=== PATIENT | male | born 1990 | race Hispanic/Latino ===

== ENCOUNTER 2017-03-05 18:50 | Emergency (ER) | payer SELFPAY ==
[2017-03-05] MEDS ORDERED: Dexamethasone 10 MG/ML VIAL ONE (20:22)
[2017-03-05] MEDS ORDERED: Ibuprofen 800 MG TAB ONE (20:22)
== END 2017-03-05 20:45 | disposition home or self-care (01) ==
LOC: ERS 18:50
DX: J40 Bronchitis, not specified as acute or chronic (principal); Z79.899 Other long term (current) drug therapy
CPT/HCPCS: 99406; J1100